=== PATIENT | female | born 2000 | race Caucasian/White ===

== ENCOUNTER → 2021-08-11 | Outpatient (CLI) | payer OTHER ==
[~2021-08-11] MED LIST: IBU600 MG PO; PERCOCET 325 MG1 TA2 PO
== END ==
LOC: COL.RAD 08-08 10:30
DX: N13.30 Unspecified hydronephrosis (principal); R19.09 Other intra-abdominal and pelvic swelling, mass and lump
CPT/HCPCS: Q9967

== ENCOUNTER 2021-08-12 18:58 | Inpatient (IN) | payer OTHER ==
[2021-08-12 21:30] VITALS: BP 117/69; PULSE 68; TEMP 98.6
[2021-08-12 21:45] LABS: BASO % 0.5 % (0.0-2.0); EOS # 0.1 K/mm3 (0.0-0.7); EOS % 1.6 % (0-4.0); GRAN # 4.1 K/mm3 (1.4-6.5); GRAN % 66.9 % (42.2-75.2); HEMATOCRIT 43.5 % (35.0-45.0); HEMOGLOBIN 14.2 g/dl (12.0-15.0); LYMPH # 1.5 K/mm3 (1.2-3.4); MEAN CELL VOLUME 90 fl (80.0-95.0); MEAN CORPUSCULAR HEMOGLOBIN 29 pg (26.0-32.0); MEAN CORPUSCULAR HGB CONC 33 g/dl (33.0-37.0); MEAN PLATELET VOLUME 9.3 fl (7.4-10.4); MONO # 0.4 K/mm3 (0.1-0.6); MONO % 5.7 % (1.7-9.3); PLATELET COUNT 206 K/mm3 (130-400); RED BLOOD COUNT 4.85 M/mm3 (4.10-5.30); REDCELL DISTRIBUTION WIDTH-CV 12.6 % (11.5-14.5)
[2021-08-12 21:49] LABS: COLLECTION METHOD CLEAN CATCH
[2021-08-12 21:56] LABS: PH 6 (5-8); SQUAMOUS EPITHELIAL 0-2 /hpf; URINE APPEARANCE Clear; URINE BACTERIA None Seen /hpf; URINE BILIRUBIN Negative (NEGATIVE); URINE BLOOD Negative (NEGATIVE); URINE COLOR Straw; URINE GLUCOSE Negative (NEGATIVE); URINE KETONE Negative (NEGATIVE); URINE LEUKOCYTE ESTERASE Negative (NEGATIVE); URINE NITRATE Negative (NEGATIVE); URINE PROTEIN(semi-quant) Negative (NEGATIVE); URINE RBC 0-2 /hpf; URINE UROBILINOGEN Negative (NEGATIVE); URINE WBC 0-2 /hpf
[2021-08-12 21:59] LABS: ALBUMIN 4.2 gm/dL (3.5-5.0); BILIRUBIN,TOTAL 0.3 mg/dL (0.2-1.2); CREATININE, serum 1.2 mg/dL (0.57-1.11); POTASSIUM 3.2 mmol/L (3.5-4.5); TOTAL PROTEIN 7.6 gm/dL (6.2-8.1)
[2021-08-13] VITALS (14 sets, daily range): BP systolic 107–126; BP diastolic 63–79; PULSE 59–74; TEMP 97.8–98.8
--- NOTE | 2021-08-13 07:10 | NUR ---
0710-Dr. Xiong on unit, in to see patient. No new orders.
--- NOTE | 2021-08-13 09:15 | NUR ---
Initial visit; Patient and her parents thanked [employer] for looking in on her and offering God's blessings and to keep her in [employer]'s prayers.
--- NOTE | 2021-08-13 10:27 | NUR ---
1027-Patient off unit via bed with Ravinder from Pre-op.
--- NOTE | 2021-08-13 13:20 | NUR ---
1320-Patient back to room via bed. Recieved bedside report from YUNIER Dunbar. Patient A&O x4 and sleepy. Oxygen 98% on room air. discontinued nasal cannula. Patient reports 4-5/10 'aching' abdominal pain at incision. Dressing C/D/I. IV to left hand. VSS, see recovery flow record. SCDs bilaterlly instructed on IS usage. Tolerates Ice chips and denies needs. Mother at bedside.
--- NOTE | 2021-08-13 14:50 | NUR ---
QUARTER SIZE SHADOWING MARKED ON LOWER THIRD OF DRESSING NEAR [facility].
--- NOTE | 2021-08-13 17:30 | NUR ---
1730-Patient up out of bed with steady gait. Ambulates around entire unit hallway and back to rocking chair to eat soup. Catheter remains to DD. Clear peach urine. Dressing with shadowing. Binder to abdomen. Dr. Delarosa to see patient just before ambulation and observes dressing and discussed plan of care with patient.
--- NOTE | 2021-08-13 20:15 | NUR ---
2015 UP TO BR AND LUIGI DC'D WITH 200CC URINE IN BAG. AMB WITHOUT DIFFICULTY. MIN C/O INC PAIN. DRESSING TO INC C,D&I.
[2021-08-14 00:30] VITALS: BP 96/48; PULSE 62; TEMP 98.5
[2021-08-14 05:00] VITALS: BP 103/64; PULSE 62; TEMP 98.2
[2021-08-14 06:40] LABS: HEMATOCRIT 34.2 % (35.0-45.0)
[2021-08-14 06:42] LABS: HEMOGLOBIN 11.3 g/dl (12.0-15.0)
[2021-08-14 06:45] LABS: CALCIUM 8.9 mg/dL (8.4-10.2); CREATININE, serum 1.03 mg/dL (0.57-1.11); POTASSIUM 3.9 mmol/L (3.5-4.5)
[2021-08-14 07:53] VITALS: BP 98/64; PULSE 72; TEMP 97.2
[2021-08-14] MEDS ORDERED: IBU600 MG PO (08:30)
[2021-08-14] MEDS ORDERED: PERCOCET 325 MG1 TA2 PO (08:30)
[2021-08-14 09:32] VITALS: BP 110/66; PULSE 78; TEMP 98.2
--- NOTE | 2021-08-14 15:32 | NUR ---
1230 patient up ambulatee in halls, toleratee activity well. shower at this time. tolerate well also.
--- NOTE | 2021-08-14 15:33 | NUR ---
1500 all discahrge instructions gievn to patient and mother. verbal understanding noted. denies needs. to pov via wheelchair.
== END 2021-08-14 15:20 | disposition home or self-care (01) | DRG 742 ==
LOC: OB 18:58
PROVIDERS: Urology; ADMIT Obstetrics & Gynecology
PROC: BT1D1ZZ Fluoroscopy of Right Kidney, Ureter and Bladder using Low Osmolar Contrast (ICD-10-PCS; 2021-08-13)
PROC: 0T738DZ Dilation of Right Kidney Pelvis with Intraluminal Device, Via Natural or Artificial Opening Endoscopic (ICD-10-PCS; principal; 2021-08-13 09:30)
PROC: 0UT50ZZ Resection of Right Fallopian Tube, Open Approach (ICD-10-PCS; 2021-08-13 09:30)
PROC: 0UT00ZZ Resection of Right Ovary, Open Approach (ICD-10-PCS; 2021-08-13 09:30)
PROC: 0T768DZ Dilation of Right Ureter with Intraluminal Device, Via Natural or Artificial Opening Endoscopic (ICD-10-PCS; 2021-08-13 09:30)
DX: N83.9 Noninflammatory disorder of ovary, fallopian tube and broad ligament, unspecified (principal); N13.30 Unspecified hydronephrosis; N94.9 Unspecified condition associated with female genital organs and menstrual cycle; N28.9 Disorder of kidney and ureter, unspecified; F41.9 Anxiety disorder, unspecified; E87.6 Hypokalemia
CPT/HCPCS: A4314; C1769; C2617; J0171; J0690; J1100; J1170; J1885; J2175; J2405; J2704; J3010; J7120; Q9967